=== PATIENT | female | born 1970 | race Caucasian/White ===

== ENCOUNTER → 2020-02-02 14:43 | Outpatient (BNVA) | payer OTHER, SELFPAY | PROVIDERS: Family Provider Family Medicine; Visit Provider Family Medicine | DX: R53.83 Other fatigue (principal); G47.33 Obstructive sleep apnea (adult) (pediatric); E03.9 Hypothyroidism, unspecified | CPT/HCPCS: 85025 ==

== ENCOUNTER 2020-02-10 20:00 | Outpatient (CLI) | payer OTHER, SELFPAY | END 2020-02-10 20:01 | disposition home or self-care (01) | LOC: SLEEP 02-13 09:44 | PROVIDERS: Family Provider Family Medicine; Visit Provider Family Medicine | DX: G47.33 Obstructive sleep apnea (adult) (pediatric) (principal) | CPT/HCPCS: 95811 ==

== ENCOUNTER → 2020-11-21 14:55 | Outpatient (BNVA) | payer OTHER, SELFPAY | PROVIDERS: Family Provider Family Medicine; PCP Family Medicine; Visit Provider Family Medicine | DX: I10 Essential (primary) hypertension (principal); E03.9 Hypothyroidism, unspecified | CPT/HCPCS: 80053; 80061; 82043; 84443; 85025 ==

== ENCOUNTER → 2021-01-11 15:14 | Outpatient (BNVA) | payer OTHER, SELFPAY | PROVIDERS: Family Provider Family Medicine; PCP Family Medicine; Visit Provider Family Medicine | DX: Z12.31 Encounter for screening mammogram for malignant neoplasm of breast (principal); E03.9 Hypothyroidism, unspecified; Z30.09 Encounter for other general counseling and advice on contraception | CPT/HCPCS: 84443 ==

== ENCOUNTER 2021-03-01 12:48 | Outpatient (CLI) | payer OTHER, SELFPAY ==
--- NOTE | 2021-03-01 13:00 | MM_ITS ---
WS: [id number] BILATERAL SCREENING DIGITAL MAMMOGRAM WITH CAD HISTORY: screening mammogram COMPARISON: 05/04/2018 Bilateral CC and MLO views submitted. Computer aided detection analyzed. Breast composition: The breasts are heterogeneously dense, which may obscure small masses. No suspici ous masses, microcalcifications or architectural distortion. Benign calcifications. No mass or distor tion. MM/[place] [id number] IMPRESSION: BI-RADS: 2-Benign FOLLOW UP: 1 Year Follow-up
== END 2021-03-01 12:49 | disposition home or self-care (01) ==
LOC: RADSHAW 12:51
PROVIDERS: PCP Family Medicine; Visit Provider Family Medicine
DX: Z12.31 Encounter for screening mammogram for malignant neoplasm of breast (principal)
CPT/HCPCS: 77067

== ENCOUNTER 2021-11-08 11:04 | Outpatient (CLI) | payer OTHER, SELFPAY ==
--- NOTE | 2021-11-08 11:21 | XR_ITS ---
WS: [id number] Exam: XR chest 2V* [id number] Date/Time of Exam: 11/08/2021 11:21 AM Reason For Exam: HOFFMAN No priors. Findings: The lungs are clear and fully expanded. Costophrenic angles are sharp. No infiltrates. Bronchovascula r relief appears normal. Cardiac silhouette is unremarkable. Bony elements are intact. XR/XR chest 2V* [id number] IMPRESSION: Unremarkable chest radiograph.
== END 2021-11-08 11:05 | disposition home or self-care (01) ==
PROVIDERS: PCP Family Medicine; Visit Provider Family Medicine
DX: R06.00 Dyspnea, unspecified (principal); I10 Essential (primary) hypertension; E03.9 Hypothyroidism, unspecified
CPT/HCPCS: 71046; 80053; 80061; 82043; 84443; 85007; 85025

== ENCOUNTER 2021-11-18 15:49 | Outpatient (CLI) | payer OTHER, SELFPAY ==
--- NOTE | 2021-11-18 16:00 | USCV_ITS ---
Taco Isa Age: 51 Gender: F : 1970 Exam Date: 11/18/2021 16:09 Ordering Phys: Selena Lizarraga DO Technologist: Ronald Calabrese Exam Location: [facility]_ Indication: lt leg pain and swelling PROCEDURES: Venous duplex imaging was performed in only the left lower extremity. The following venous structures were evaluated: common femoral vein, profunda vein, proximal portion of the greater saphenous vein, superficial femoral vein, and the popliteal vein. In addition, the posterior tibial and peroneal trunk were evaluated. FINDINGS: Lt leg dvt in lt femoral vein , lt pop lt perineal trunk. called prelim CONCLUSIONS Left DVT in the femoral vein, popliteal and peroneal trunk Prelim called by propagator laborer at time of study Vic Zamora MD (Electronically Signed) Final Date: 19 November 2021 09:34 S
== END 2021-11-18 15:50 | disposition home or self-care (01) ==
PROVIDERS: PCP Family Medicine; Visit Provider Family Medicine
DX: M79.662 Pain in left lower leg (principal); M79.89 Other specified soft tissue disorders
CPT/HCPCS: 93971

== ENCOUNTER → 2022-02-14 11:40 | Outpatient (BNVA) | payer OTHER, SELFPAY | PROVIDERS: PCP Family Medicine; Visit Provider Family Medicine | DX: E03.9 Hypothyroidism, unspecified (principal) | CPT/HCPCS: 84443 ==

== ENCOUNTER → 2023-01-26 09:45 | Outpatient (BNVA) | payer OTHER, SELFPAY | PROVIDERS: PCP Family Medicine; Visit Provider Family Medicine | DX: I10 Essential (primary) hypertension (principal); E03.9 Hypothyroidism, unspecified; R07.89 Other chest pain | CPT/HCPCS: 80053; 80061; 82043; 84443; 85025 ==